=== PATIENT | female | born 1955 | race African-American/Black ===

== ENCOUNTER 2016-07-21 09:06 | Day surgery (SDC) | payer OTHER ==
[2016-07-16 16:57] LABS: HEMATOCRIT 39.3 % (36.0-48.0); HEMOGLOBIN 12.9 g/dL (12.0-16.0)
[2016-07-16 17:03] LABS: BUN (BLOOD UREA NITROGEN) 21 MG/DL (6-23); CALCIUM, SERUM 9.4 MG/DL (8.5-10.4); CHLORIDE, SERUM 103 MMOL/L (96-112); CO2 (CARBON DIOXIDE) 28 MMOL/L (24-34); CREATININE 0.94 MG/DL (0.55-1.02); GFR AFRICAN AMERICAN 77 ML/MIN (>=60); GFR NON AFRICAN AMERICAN 66 ML/MIN (>=60); GLUCOSE, SERUM 101 MG/DL (60-99); POTASSIUM, SERUM 3.6 MMOL/L (3.5-5.3); SODIUM, SERUM 141 MMOL/L (135-148)
--- NOTE | ~2016-07-21 | OP ---
Record Of Operation [facility] [address] [place]. [address] NAME: CHANDA IYER : 59 STATUS : REG [facility] [place] PAT#: [id number] AGE: 61 ADM/REG DATE : 07/21/16 MR#: [id number] REPORT SERV DATE: 07/21/16 DICTATED BY: JAUN COREAS III DATE: 07/21/16 REPORT STATUS : Draft TRANSCRIBED BY: MODL DATE: 07/21/16 DATE OF PROCEDURE: 07/21/2016 PREOPERATIVE DIAGNOSIS: High-grade bursal surface tear, rotator cuff complex left shoulder POSTOPERATIVE DIAGNOSIS: Anterior labral tear. SURGICAL PROCEDURE PERFORMED: 1. Arthroscopic debridement anterior labral tear. 2. Arthroscopic decompression, acromioplasty, subacromial bursectomy, left shoulder. 3. Rotator cuff tendinopathy. SURGEON: Jaun Coreas M.D. CARPENTER RAILCAR: Jaun Barriga and Lashonda Hernandez. SURGEON: Jaun Coreas M.D. POSITION: Beach chair. CRYSTALLOID: 800 mL. ESTIMATED BLOOD LOSS: 40 mL to 50 mL. COMPLICATIONS: None. MEDICATIONS: Interscalene block for postoperative pain control. PROCEDURE IN DETAIL: The patient was brought to the operative room, placed on the table in supine position and general anesthesia was induced. 2 g Ancef was administered intravenously in the operating room. An interscalene block was provided per Anesthesia Department for postoperative pain control. The patient was positioned in a beach chair type position along with a pneumatic arm ridley. Left shoulder and upper extremity were entirely prepped and draped in the usual sterile fashion. Assuring good anesthesia, a standard posterior portal was provided to the left glenohumeral joint. It was inflated with sterile normal saline by means of the arthroscopic pump. Articular surfaces of the glenohumeral joint were normal. Posterior and inferior capsule labral structures were normal. There was tearing and fraying at the anterior labrum. A switching stick was used to create an anterior portal. This was debrided with a 4.5 shaver down to good stable labral tissue. Biceps tendon was pulled into the joint and noted to be normal. There were no SLAP tears of the bicipital insertion. Undersurface of the rotator cuff complex appeared fairly normal. There was a little fraying right the insertion of the supraspinatus tendon. This was shaved briefly to bleeding tissue, but this could not be classified as the discrete tear other than some minimal fraying. The arthroscope was then switched to the subacromial space and a straight lateral portal was created. Thickened bursal tissue was debrided performing a subacromial bursectomy. The periosteum on the underside of the acromion was cauterized with Record Of Operation [place] [address] [place]. [address] NAME: CHANDA IYER : 59 STATUS : REG [facility] [place] PAT#: [id number] AGE: 61 ADM/REG DATE : 07/21/16 MR#: [id number] REPORT SERV DATE: 07/21/16 DICTATED BY: JAUN COREAS III DATE: 07/21/16 REPORT STATUS : Draft TRANSCRIBED BY: STEWART DATE: 07/21/16 the taxi 1. High-speed isabel was used to perform a decompression acromioplasty. The bursal surface side of the rotator cuff complex appeared frayed consistent with rotator cuff tendinopathy. There was no discrete tear and tedious visualization was carried out for quite sometime to contradict the MRI findings of a high-grade bursal surface tear. This was not seen arthroscopically. Having accomplished this, no other pathology was noted. Instrumentation was removed. Ports were closed with 4-0 Monocryl. Benzoin and Steri-Strips were applied, followed by a DonJoy sling. The patient tolerated the procedure well and brought to recovery room in satisfactory condition. There were no intraoperative, postoperative, or anesthetic complications. NIRAJ/STEWART Jaun Coreas III, M.D. / [id number] CC: Dennys Duran III, M.D.
[~2016-07-21 09:06] MED LIST: ATV.5 PO; BYSTOLIC10 MG PO; CLEOCIN100 MG V; CRESTOR20 MG PO; DIOVAN320 MG PO; KLOR-CON; NASONEX NAS; NORV5 PO; VALTREX5 PO
== END 2016-07-21 23:59 | disposition home or self-care (01) ==
LOC: MSC 09:06
PROVIDERS: Orthopaedic Surgery
PROC: 0RBK4ZZ Excision of Left Shoulder Joint, Percutaneous Endoscopic Approach (ICD-10-PCS; principal; 2016-07-21 11:00)
PROC: 3E0T3BZ Introduction of Anesthetic Agent into Peripheral Nerves and Plexi, Percutaneous Approach (ICD-10-PCS; 2016-07-21 11:00)
DX: S43.492A Other sprain of left shoulder joint, initial encounter (principal); X58.XXXA Exposure to other specified factors, initial encounter; Y93.9 Activity, unspecified; I10 Essential (primary) hypertension; E78.5 Hyperlipidemia, unspecified; K21.9 Gastro-esophageal reflux disease without esophagitis; F41.9 Anxiety disorder, unspecified; Z79.2 Long term (current) use of antibiotics; Z79.899 Other long term (current) drug therapy
CPT/HCPCS: 80048; 85014; 85018; 93005; A9270-GY; J0690; J2175; J2250; J2405; J2710; J2795; J3010